=== PATIENT | female | born 1990 | race Caucasian/White ===

== ENCOUNTER 2017-08-22 12:57 | Emergency (ER) | payer OTHER ==
[~2017-08-22] VITALS: Ht 154.9 cm; Wt 68.0 kg
[2017-08-22 13:22] VITALS: Ht 154.9 cm; Wt 68.0 kg
[2017-08-22 19:16] VITALS: BP 112/68
== END 2017-08-22 19:16 | disposition home or self-care (01) ==
LOC: ED 12:57
DX: S30.0XXA Contusion of lower back and pelvis, initial encounter (principal); M54.42 Lumbago with sciatica, left side; W17.89XA Other fall from one level to another, initial encounter; Y93.89 Activity, other specified; Y92.89 Other specified places as the place of occurrence of the external cause; Y99.8 Other external cause status
CPT/HCPCS: J1885